=== PATIENT | male | born 1955 | race Caucasian/White ===

== ENCOUNTER 2024-01-02 15:26 | Emergency (ER) | payer OTHER, MEDICARE, SELFPAY ==
[2024-01-02] VITALS (9 sets, daily range): BP systolic 116–143; BP diastolic 70–90; PULSE 49–57
[2024-01-02] MEDS: ANTIVERT 25 MG PO (17:05)
[2024-01-02 17:25] LABS: % Basophils 1.6 % (0-2); % Eosinophils 1.9 % (0-6); % Immature Granulocytes 0.2 % (0-0.5); % Lymphocytes 29.7 % (20.5-51.1); % Monocytes 9.1 % (1.7-9.3); % Neutrophils 57.5 % (42.2-75.2); Absolute Basophils 0.1 10^3/uL (0-0.2); Absolute Eosinophils 0.1 10^3/uL (0-0.7); Absolute Lymphocytes 1.7 10^3/uL (1.2-3.4); Absolute Monocytes 0.5 10^3/uL (0.1-0.6); Absolute Neutrophils 3.3 10^3/uL (1.4-6.5); Hematocrit 44.1 % (39.0-52.0); Hemoglobin 15.6 g/dL (13.0-18.0); Mean Corp Hgb Conc. 35.4 g/dL (33.0-37.0); Mean Corpuscular Volume 87.7 fL (80.0-94.0); Nucleated Red Blood Cells % 0 % (-); Red Blood Cell Count 5.03 10^6/uL (4.70-6.10); Red Cell Dist. Width 12.5 % (11.5-14.5); White Blood Cell Count 5.8 10^3/uL (4.8-10.8)
--- NOTE | 2024-01-02 17:30 | ED.GENMED ---
History of Present Illness
<Ira Cason PA-C - Last Filed: 01/07/24 13:09>
General
Chief Complaint: Dizziness
Source: patient
Exam Limitations: none
Time Seen by Provider: 01/02/24 16:10
Nursing documentation reviewed up to this point in time: agreed with
Travel History
Have you had any contact with someone who has COVID-19?: No
Do you have any symptoms of coronavirus? Fever > 100 degrees, chills, cough, shortness of breath, sore throat, loss of taste or smell, muscle aches, or headache?: No
History of Present Illness
History of Present Illness:
68 y/o M with h/o htn
here with vertigo symptoms
dizziness/room spinngin starting this morning aoround 11am while he was outside getting his pool ready for a green party
he says he had an episode where he was bending over, then stood up and felt dizzy for about 5 minutes before it resolved; while he was dizzy he felt off balance. no headache, no vision chagne,s no neck pain, no wekaness.
went into the house and then sat down and a few mintues after that episode resolved he had another episode lsing about 5 min
he again had no headahce or any other neuro sypmtoms
didn't feel like he was going to pass out
has had a lot of allergy sypmtoms, sneezing/congestion because of pollen but hasn't taken anything
no h/o vertigo before
no stroke history
no recent falls/trauma
Past History
<Ira Cason PA-C - Last Filed: 01/07/24 13:09>
Past History
ED Past Medical History: HTN and Hypercholesterolemia (Minimal)
ED Past Surgical History: Orthopedic (right knee tendon rupture repair)
Social History
Tobacco: Non-smoker
Alcohol: Occasional
Personal:
Living: with family
Employment: Employed
Review of Systems
<Ira Cason PA-C - Last Filed: 01/07/24 13:09>
Review of Systems
Allergies reviewed?: Yes
All Other Systems: Not applicable
Phy Exam
<Ira Cason PA-C - Last Filed: 01/07/24 13:09>
Physical Exam
Physical Exam:
GENERAL: Alert , in no apparent distress
HEAD: NCAT
EYE: pupils equal and reactive, no nystagmus, photophobia
NECK: Supple,full rom, nontender
ENT: o/p clr, mmm. ears clear
CARDIAC: Regular rate and rhythm . no edema
LUNGS: Clear breath sounds bilaterally, no acute respiratory distress, no wheezes/rales/rhonchi
ABDOMEN: Soft, without focal tenderness, no r/g, no cvat
NEUROLOGICAL: Alert and orientedx 4, cn intact, no facial asymmetry, 5/5 strength in UE/LE, sensation intact, romberg neg, ambulates without assistance, neg pronator drift
SKIN: Warm and dry, skin intact.
MUSCULOSKELETAL: no edema, nontender
PSYCH: Normal and appropriate interaction.
Course
<Ira Cason PA-C - Last Filed: 01/07/24 13:09>
Orders/Labs/Results
Orders:
Orders
01/02/24 15:44
Electrocardiogram (*1) Urgent
Reason for Study: Vertigo / Dizzy
01/02/24 15:45
EKG- Treatment ONCE
01/02/24 16:54
Orthostatic VS- Treatment ONCE
Meclizine [Antivert] 25 mg PO NOW STA
01/02/24 17:02
Complete Blood Count/With Diff Urgent
01/02/24 17:20
CT Head & Neck Angio W/wo IV Urgent
Comment:
Reason For Exam: dizziness
01/02/24 17:40
Comprehensive Metabolic Panel Urgent
01/02/24 17:02
01/02/24 17:40
Vital Signs
Initial and Last Documented VS:
Initial Vital Signs
Temp Pulse Resp BP Pulse Ox
98.0 F 57 16 140/79 98
01/02/24 15:40 01/02/24 15:40 01/02/24 15:40 01/02/24 15:40 01/02/24 15:40
Last Documented Vital Signs
Temp Pulse Resp BP Pulse Ox
98.0 F 43 20 116/71 96
01/02/24 15:40 01/02/24 19:00 01/02/24 19:00 01/02/24 19:00 01/02/24 19:00
<Ryan Bartholomew MD - Last Filed: 01/02/24 20:26>
Orders/Labs/Results
Orders:
Orders
01/02/24 15:44
Electrocardiogram (*1) Urgent
Reason for Study: Vertigo / Dizzy
01/02/24 15:45
EKG- Treatment ONCE
01/02/24 16:54
Orthostatic VS- Treatment ONCE
Meclizine [Antivert] 25 mg PO NOW STA
01/02/24 17:02
Complete Blood Count/With Diff Urgent
01/02/24 17:20
CT Head & Neck Angio W/wo IV Urgent
Comment:
Reason For Exam: dizziness
01/02/24 17:40
Comprehensive Metabolic Panel Urgent
01/02/24 17:02
01/02/24 17:40
Vital Signs
Initial and Last Documented VS:
Initial Vital Signs
Temp Pulse Resp BP Pulse Ox
98.0 F 57 16 140/79 98
01/02/24 15:40 01/02/24 15:40 01/02/24 15:40 01/02/24 15:40 01/02/24 15:40
Last Documented Vital Signs
Temp Pulse Resp BP Pulse Ox
98.0 F 43 20 116/71 96
01/02/24 15:40 01/02/24 19:00 01/02/24 19:00 01/02/24 19:00 01/02/24 19:00
<Ira Cason PA-C - Last Filed: 01/07/24 13:09>
MDM/Problems Addressed
Differential Diagnosis Includes:
vertigo, orthostasis, smptoamtic bradycardia, less likely vertebral stroke
MDM/Problems Addressed:
68 y/o M with episodic room spinning dizziness x 2 episodes this morning
some seasonal allergies
no headache or neuro sypmtoms
no cp, sob, or syncope symptoms
on exam well appearing
bradycardic in the 50s
neuro intact
no dizziness with positioning in the stretcher
very FAINTLY positive dipak hallpike iwth head to the Right
orthostatics neg
finger to nose and heel to regalado normal
seen by ed attending
suspect BPPV
will treat with meclizine and w/u with labs, head/neck CTA
anticipate discharge as low suspicion this is VBI
signed out pending w/u
<Ira Cason PA-C - Last Filed: 01/07/24 13:09>
*Critical Care Note
Total Time (30-74mins, 75-104mins- exclusive of procedures): Not Applicable
<Ryan Bartholomew MD - Last Filed: 01/02/24 20:26>
Update Note
Update Note:
CT angio negative. Some plaque in the right carotid. Asymptomatic. Did advise a baby aspirin per day for completeness. Heart rate in the low 40s to mid 50s. However sinus bradycardia and asymptomatic
ED Attending Note
<Ira Cason PA-C - Last Filed: 01/07/24 13:09>
-
Portions of this chart may have been created with voice recognition software.� Occasional wrong word or��sound alike� substitutions may have occurred due to the inherent limitations of voice recognition software.
<Ryan Bartholomew MD - Last Filed: 01/02/24 20:26>
ED Attending Note
Patient seen and examined by attending physician: Yes
I performed the substantive portion of visit, reviewed & personally made and approve the management plan that is documented in note by myself or BRADLEY.: Yes
ED Attending Note:
68-year-old male with 2 brief episodes of vertigo. Each lasting about a minute. No other neurologic symptoms. No unusual headache visual issues etc. No history of same. Patient feels fine at this time. Both episodes occurred earlier today
Patient's exam is unremarkable. Cranial nerves II through XII intact. Speech normal. Extraocular muscles intact. I could not appreciate any obvious nystagmus at this time. [id number] normal. [id number] normal. Warm and dry.
Impression patient is describing brief vertigo. He is bradycardic but with a stable blood pressure. Normally he does run low heart rate just not historically this low. However again he is asymptomatic with a good blood pressure. Neurologically
stable. Doubt central etiology. For completeness CTA will be done. Discussed with patient and
2024... When patient stands heart rate goes up into the 60s. Again sinus rhythm. Patient is not describing near syncope. This was confirmed multiple times. Stable for discharge to follow-up. CT scan showed some plaque in the right but no acute
abnormalities
Discharge Plan
Departure
Patient Disposition: Home (Routine Discharge)
Date of Disposition: 01/02/24
Time of Disposition: 20:25
Patient with high blood pressure during this ER visit?: Yes
Discharge Problem:
Vertigo
Instructions: Vertigo (a type of dizziness), BLOOD PRESSURE
Prescriptions:
New
meclizine 25 mg tablet
25 mg PO TID PRN (Reason: dizziness) Qty: 14 0RF
No Action
aspirin 81 MG tablet,delayed release (DR/EC)
81 mg PO
Patient Comments:
pt reports he takes 4-5 times per week
lisinopril 5 MG tablet
5 mg PO DAILY
Multivitamin
1 tab PO DAILY
Referrals:
Miguel Angel Hirsch DO [Family Provider] - Follow up in 2-3 days
Activity Restrictions/Additional Instructions:
YOUR SYMPTOMS ARE LIKELY FROM VERTIGO
TRY FLONASE 2 SPRAYS EACH NOSTRIL ONCE A DAY
BE SURE TO AVOID SUDDEN HEAD TURNING OR BENDING OVER
RETURN FOR SEVERE SYPMTOMS, PASSING OUT, TROUBLE WALKING, HEADACHE, VOMITING, WEAKNESS ETC
Interventions
Interventions:
*ED COVID-19 Vaccine History Last Done: 01/02/24 15:40
*Nursing Disposition Last Done: 01/02/24 20:36
ED- Neurological Assessment Last Done: 01/02/24 17:18
ED- Cardiac Assessment Last Done: 01/02/24 17:18
ED Swallowing Screen Last Done: 01/02/24 17:18
Discharge Date and Time
Discharge Date/Time: 01/02/24 20:37
Print Language: KOREAN
[2024-01-02 18:06] LABS: ALT (SGPT) 33 U/L (0-50); AST (SGOT) 28 U/L (17-59); Albumin 3.9 g/dl (3.5-5.0); Alkaline Phosphatase 63 U/L (38-126); Blood Urea Nitrogen 19 mg/dl (9-20); Calcium 9.6 mg/dl (8.4-10.2); Carbon Dioxide 24 mmol/L (22-30); Chloride 107 mmol/L (98-107); Glucose 95 mg/dl (70-99); Potassium 4.2 mmol/L (3.5-5.1); Sodium 140 mmol/L (135-145); Total Bilirubin 0.8 mg/dl (0.2-1.3); Total Protein 6.5 g/dl (6.3-8.2); eGFR > 60.00
== END 2024-01-02 20:37 | disposition home or self-care (01) ==
LOC: EMR 15:26
PROVIDERS: Physician Assistant; Student in an Organized Health Care Education/Training Program; EMERGENCY PHYSICIAN Emergency Medicine; FAMILY PHYSICIAN Internal Medicine
DX: R42 Dizziness and giddiness (principal); I10 Essential (primary) hypertension; E78.00 Pure hypercholesterolemia, unspecified; I65.21 Occlusion and stenosis of right carotid artery; E03.9 Hypothyroidism, unspecified
CPT/HCPCS: 99285; 70496; 70498; 80053; 85025; 93005; Q9967